=== PATIENT | female | born 1950 | race Caucasian/White ===

== ENCOUNTER 2016-08-11 09:42 | Emergency (ER) | payer OTHER ==
[~2016-08-11] VITALS: Ht 165.1 cm; Wt 72.6 kg
[~2016-08-11 09:42] MED LIST: ACIPHEX20 M1 PO; ACTOS15 MG PO; ASPI-COR81 M1 PO; CLARITIN10 MG PO; ENALAPRIL5 M1 PO; HUMALOG100 UNITS/ SUBQ; INVOKANA300 MG PO; LANTUS INS100 UNITS/ SUBQ; LANTUS100 U/ML SC; METOPROLOL50 M1 PO; PROTONIX40 MG PO; SIMVASTATIN20 M1 PO; SINGULAIR10 MG PO; THEROMEGA1000 MG PO; VENTOLIN H0.09 MG/Ac IH; VITAMIN D3100000 IU/; ZOCOR20 MG PO; [UNRECOGNIZED DRUG - OTHER] PO
[2016-08-11 09:44] VITALS: BP 131/77
[2016-08-11] MEDS ORDERED: IPRATROPIUM 0.02% 0.5 MG/2.5 ML NEBU INH ONE ×2 (10:20→12:40)
[2016-08-11] MEDS ORDERED: ALBUTEROL 0.083% 2.5 MG/3 ML NEBU INH ONE ×2 (10:20→12:40)
--- NOTE | 2016-08-11 10:30 | NUR ---
XRAY AT [facility]
--- NOTE | 2016-08-11 10:36 | NUR ---
PATIENT PRESENTS TO ED DUE COUGHING,X 2 MONTHS .DENIES N/V/D; SKIN IS PINK/WARM/DRY; AAOX4 WITH EVEN AND STEADY GAIT; HR EVEN AND REGULAR; PT DENIES ANY FEVER, PATIENT STATES PAIN OF 9/10 AT THIS TIME; PATIENT POSITIONED FOR COMFORT; HOB ELEVATED; BEDRAILS UP X2; BED DOWN. HX ASTHMA ,DIABETES, DAUGHTER AT BEDSIDE, ONGOING HHN AT THIS TIME
--- NOTE | 2016-08-11 10:53 | NUR ---
PT AAO ONGOING WITH HHN, DAUGHTER AT BEDSIDE, RT AT BEDSIDE TEACHING FAMILY AND PT REGARDING HHN
--- NOTE | 2016-08-11 11:18 | NUR ---
DR. ORDOÑEZ AT BEDSIDE
--- NOTE | 2016-08-11 12:35 | NUR ---
PT AAO, NO SOB, DAUGHTER AT BEDSIDE, VITAL SIGN STABLE
--- NOTE | 2016-08-11 13:06 | NUR ---
HHN DONE AT THIS TIME, PT AAO, NO SOB NOTED.
[2016-08-11 13:48] VITALS: BP 123/68
--- NOTE | 2016-08-11 13:49 | NUR ---
Patient discharged with v/s stable. Written and verbal after care instructions given and explained. Patient alert, oriented and verbalized understanding of instructions. Ambulatory with steady gait. All questions addressed prior to discharge. ID band removed. Patient advised to follow up with PMD. Rx of PREDNISONE AND ALBUTEROL given. Patient educated on indication of medication including possible reaction and side effects. Opportunity to ask questions provided and answered.
== END 2016-08-11 13:49 | disposition home or self-care (01) ==
LOC: MED 09:42
DX: J42 Unspecified chronic bronchitis (principal); I10 Essential (primary) hypertension; J45.909 Unspecified asthma, uncomplicated; E11.9 Type 2 diabetes mellitus without complications; Z79.4 Long term (current) use of insulin; Z79.82 Long term (current) use of aspirin
CPT/HCPCS: 36415; 71010; 80053; 82553; 82948; 83880; 84484; 85025; 85379; 93005; 94640; 99285; J7613; J7644; Q0092

== ENCOUNTER 2018-09-04 20:40 | Emergency (ER) | payer OTHER ==
[~2018-09-04] VITALS: Ht 154.9 cm; Wt 77.1 kg
[~2018-09-04 20:40] MED LIST changes: -ACIPHEX20 M1 PO; -ACTOS15 MG PO; +ALBU0.0912 IH; -ASPI-COR81 M1 PO; +ASPI81CT33 PO; +CANA300T PO; +CHOL100018; -CLARITIN10 MG PO; +ENAL5TAB20 PO; -ENALAPRIL5 M1 PO; +HUM SUBQ; -HUMALOG100 UNITS/ SUBQ; -INVOKANA300 MG PO; -LANTUS INS100 UNITS/ SUBQ; +LANTUS SC; +LANTUS SUBQ; -LANTUS100 U/ML SC; +LORA10TA19 PO; +METO50TA20 PO; -METOPROLOL50 M1 PO; +MONT10TA35 PO; +PANT40EC PO; +PIOG15TA2 PO; -PROTONIX40 MG PO; +RABE20EC17 PO; +SIMV20TA1 PO; -SIMVASTATIN20 M1 PO; -SINGULAIR10 MG PO; -THEROMEGA1000 MG PO; -VENTOLIN H0.09 MG/Ac IH; -VITAMIN D3100000 IU/; -ZOCOR20 MG PO; +[UNRECOGNIZED DRUG - CODE] PO; +[UNRECOGNIZED DRUG - CODE] PO; -[UNRECOGNIZED DRUG - OTHER] PO
[2018-09-04 20:41] VITALS: BP 151/80
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
--- NOTE | 2018-09-04 21:43 | NUR ---
PT EATING AT THIS TIME.
[2018-09-04 22:03] LABS: ALBUMIN 3.9 g/dL (3.4-5.0); ANION GAP 14.8 (8-16); CARBON DIOXIDE 23.8 mmol/L (21-32); CREATININE 0.9 mg/dL (0.6-1.3); POTASSIUM 3.6 mmol/L (3.5-5.1); TOTAL BILIRUBIN 0.3 mg/dL (0.0-1.0)
[2018-09-04] MEDS ORDERED: CALC500T19 PO (22:41)
[2018-09-04] MEDS ORDERED: ATRMDI IH (22:41)
[2018-09-04] MEDS ORDERED: VAS5 PO (22:41)
--- NOTE | 2018-09-04 22:43 | NUR ---
PT RESTING IN BED COMFORTABLY, FAMILY AT BEDSIDE. PT BS 235 AT THIS TIME, ER MD NOTIFIED. VSS. WILL CONTINUE TO MONITOR.
[2018-09-04 23:39] VITALS: BP 106/61
--- NOTE | 2018-09-04 23:39 | NUR ---
Patient discharged with v/s stable. Written and verbal after care instructions given and explained. Patient verbalized understanding. Ambulatory with steady gait. All questions addressed prior to discharge. Advised to follow up with PMD.
== END 2018-09-04 23:39 | disposition home or self-care (01) ==
LOC: MED 20:40
DX: E11.649 Type 2 diabetes mellitus with hypoglycemia without coma (principal); J45.909 Unspecified asthma, uncomplicated; I10 Essential (primary) hypertension; Z79.4 Long term (current) use of insulin; Z79.82 Long term (current) use of aspirin; Z79.899 Other long term (current) drug therapy
CPT/HCPCS: 36415; 80053; 82948; 84484; 93005; 99284

== ENCOUNTER 2021-04-03 23:53 | Emergency (ER) | payer OTHER ==
[~2021-04-03] VITALS: Ht 154.9 cm; Wt 80.7 kg
[~2021-04-03 23:53] MED LIST changes: -ALBU0.0912 IH; +ATRMDI IH; +CALC500T19 PO; -ENAL5TAB20 PO; +ENAL5TAB34 PO; +ENAL5TAB48 PO; -LANTUS SC; -METO50TA20 PO; -MONT10TA35 PO; -PIOG15TA2 PO; +PIOG15TA48 PO; -RABE20EC17 PO; -SIMV20TA1 PO; -[UNRECOGNIZED DRUG - CODE] PO; -[UNRECOGNIZED DRUG - CODE] PO
[2021-04-04 00:09] VITALS: BP 125/65
--- NOTE | 2021-04-04 00:14 | NUR ---
TO LOBBY A/W BED AMBULATORY
--- NOTE | 2021-04-04 02:22 | NUR ---
PT AMBULATED TO BED 02.
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
[2021-04-04] MEDS ORDERED: VANCOMYCIN 1,000 MG in DEXTROSE 5% 250 ML IV ONE (02:45)
[2021-04-04] MEDS ORDERED: VANCOMYCIN 1,000 MG VIAL ONE (02:59)
--- NOTE | 2021-04-04 03:05 | NUR ---
PATIENT LAYING IN BED LOCKED IN LOWEST POSITION W X1 SIDERAIL UP FOR PATIENT SAEFETY. PATIENT DENIES ANY PAIN, FEVER, N/V. BREATHING EVEN AND UNLABORED. NAD NOTED, WILL CONTINUE TO MONITOR.
--- NOTE | 2021-04-04 04:12 | NUR ---
PATIENT LAYING IN BED LOCKED IN LOWEST POSITION W X1 SIDERAIL UP FOR PATIENT SAEFETY. PATIENT DENIES ANY PAIN. BREATHING EVEN AND UNLABORED. NAD NOTED, WILL CONTINUE TO MONITOR.
--- NOTE | 2021-04-04 05:15 | NUR ---
PATIENT AMBULATED TO BATHROOM W STEADY GAIT.
[2021-04-04] MEDS ORDERED: CEPH-588 PO (05:23)
[2021-04-04] MEDS ORDERED: SULF-59 PO (05:23)
[2021-04-04 05:33] VITALS: BP 128/61
--- NOTE | 2021-04-04 05:33 | NUR ---
Patient discharged with v/s stable. Written and verbal after care instructions given and explained. Patient alert, oriented and verbalized understanding of instructions. Ambulatory with steady gait. All questions addressed prior to discharge. ID band removed. Patient advised to follow up with PMD. Rx of KEFLEX, BACTRIM given. Patient educated on indication of medication including possible reaction and side effects. Opportunity to ask questions provided and answered.
== END 2021-04-04 05:33 | disposition home or self-care (01) ==
LOC: MED 23:53
DX: L03.116 Cellulitis of left lower limb (principal); J45.909 Unspecified asthma, uncomplicated; I10 Essential (primary) hypertension; E11.9 Type 2 diabetes mellitus without complications; Z79.2 Long term (current) use of antibiotics; Z79.899 Other long term (current) drug therapy; Z79.82 Long term (current) use of aspirin; Z79.4 Long term (current) use of insulin
CPT/HCPCS: 36415; 87040; 96365; 99284; J3370

== ENCOUNTER 2023-12-28 14:09 | Emergency (ER) | payer OTHER ==
[~2023-12-28] VITALS: Ht 165.1 cm; Wt 68.0 kg
[~2023-12-28 14:09] MED LIST changes: +CEPH-588 PO; +ENAL-270 PO; -ENAL5TAB34 PO; +PIOG-4 PO; -PIOG15TA48 PO; +SULF-59 PO
[2023-12-28 14:26] VITALS: BP 146/72; PULSE 86; RESP 14; TEMP 97.8; O2SAT 100
[2023-12-28 16:33] VITALS: BP 134/67; PULSE 88; RESP 20; TEMP 98.3; O2SAT 99
== END 2023-12-28 16:35 | disposition home or self-care (01) ==
LOC: MED 14:09
DX: E11.649 Type 2 diabetes mellitus with hypoglycemia without coma (principal); J45.909 Unspecified asthma, uncomplicated; I10 Essential (primary) hypertension; Z79.4 Long term (current) use of insulin; Z79.82 Long term (current) use of aspirin; Z79.1 Long term (current) use of non-steroidal anti-inflammatories (NSAID); Z79.2 Long term (current) use of antibiotics; Z79.899 Other long term (current) drug therapy
CPT/HCPCS: 82948; 99282; 99283